=== PATIENT | female | born 1960 | race Asian ===

== ENCOUNTER → 2017-08-11 | Outpatient (CLI) | payer BC | LOC: FIMAGING 10:32 | DX: Z12.31 Encounter for screening mammogram for malignant neoplasm of breast (principal) | CPT/HCPCS: G0202 ==

== ENCOUNTER → 2018-08-19 | Day surgery (SDC) | payer BC ==
--- NOTE | 2018-08-18 17:54 | PDHPUP ---
History & Physical Update H&P update statement: This history and physical update is based on an assessment of the patient which was completed after admission or registration (within 24 hours), but prior to the surgery/procedure. H&P update: H&P reviewed & patient examined, no change in patient's condition since H&P completed
[~2018-08-19] MED LIST: LIDOCAINE 1% 2 ML INJ ID PRN; LR 1,000 ML IV ONE
[2018-08-19 06:33] VITALS: BP 127/73
== END | disposition home or self-care (01) ==
LOC: FSGY 05:57
PROVIDERS: ATTEND Obstetrics & Gynecology Gynecology
DX: R93.89 Abnormal findings on diagnostic imaging of other specified body structures (principal); Z53.09 Procedure and treatment not carried out because of other contraindication

== ENCOUNTER → 2018-10-07 | Outpatient (CLI) | payer BC | LOC: FIMAGING 15:05 | DX: Z12.31 Encounter for screening mammogram for malignant neoplasm of breast (principal) ==

== ENCOUNTER → 2018-10-15 | Outpatient (CLI) | payer BC | LOC: FIMAGING 14:50 | DX: N60.02 Solitary cyst of left breast (principal) ==

== ENCOUNTER → 2018-10-20 | Outpatient (CLI) | payer BC | LOC: FIMAGING 15:11 | DX: N20.0 Calculus of kidney (principal); K59.00 Constipation, unspecified; J47.9 Bronchiectasis, uncomplicated ==